=== PATIENT | male | born 1960 | race Caucasian/White ===

== ENCOUNTER 2016-11-03 11:39 | Emergency (ER) | payer OTHER ==
[2016-11-03] MEDS ORDERED: Lidocaine 1% with EPINEPHrine 1:100,000 20 ML MDV INJECT ONE (12:09)
--- NOTE | 2016-11-03 12:09 | EDM.PDOC ---
[id number] [employer] [facility] Time Seen by Provider: 11/03/16 12:05 Source of Information: Reports: Patient History Limitations: Reports: No Limitations - History of Present Illness INITIAL COMMENTS - FREE TEXT/NARRATIVE: pt states that he was cutting something and cut his right hand with a knife. Bleeding controlled. 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 [No Known Home Meds] 11/07/13 [History] Past Medical History - Past Health History Medical/Surgical History: Denies Medical/Surgical History HEENT History: Reports: Allergic Rhinitis Cardiovascular History: Reports: None Respiratory History: Reports: Asthma Gastrointestinal History: Reports: None Genitourinary History: Reports: None Musculoskeletal History: Reports: None Neurological History: Reports: None Psychiatric History: Reports: None Endocrine/Metabolic History: Reports: None Hematologic History: Reports: None Immunologic History: Reports: None Oncologic (Cancer) History: Reports: None Dermatologic History: Reports: None - Infectious Disease History Infectious Disease History: Reports: Shingles - Past Surgical History GI Surgical History: Reports: None Male Surgical History: Reports: None Musculoskeletal Surgical History: Reports: None Social & Family History - Tobacco Use Smoking Status *Q: Never Smoker Second Hand Smoke Exposure: Yes - Caffeine Use Caffeine Use: Reports: Coffee - Alcohol Use Days Per Week of Alcohol Use: 3 Number of Drinks Per Day: 3 Total Drinks Per Week: 9 - Recreational Drug Use Recreational Drug Use: No Drug Use in Last 12 Months: Yes Recreational Drug Type: Reports: Marijuana/Hashish Recreational Drug Use Frequency: Monthly ED ROS GENERAL - Review of Systems Review Of Systems: ROS reveals no pertinent complaints other than HPI. ED EXAM, SKIN/RASH Exam: See Below Exam Limited By: No Limitations General Appearance: Alert, WD/WN, No Apparent Distress Respiratory/Chest: No Respiratory Distress Extremities: Normal Inspection, Normal Range of Motion, Non-Tender, No Pedal Edema, Normal Capillary Refill Skin: Warm, Dry, Wound/Incision Location, Skin: Upper Extremity, Right Characteristics: Linear ED SKIN PROCEDURES - Laceration/Wound Repair Right Hand Lac/Wound length In cm: 2 Appearance: Superficial Distal NVT: Neuro & Vascular Intact Anesthetic Type: Local Local Anesthesia - Lidocaine (Xylocaine): 1% With EPI Local Anesthetic Volume: 3cc Skin Prep: Chlorhexidine (Hibiciens), Providone-Iodine (Betadine), Saline Saline Irrigation (cc's): 30 Exploration/Debridement/Repair: No Foreign Material Found Closed with: Sutures Suture Size: 3-0 # of Sutures: 4 Suture Type: Other (vicryl) Drain Placement: No Sterile Dressing Applied: Nurse Tetanus Status Addressed: Yes Course - Vital Signs Last Recorded V/S: Last Vital Signs Temp 96.8 F 11/03/16 13:07 Pulse 60 11/03/16 13:07 Resp 18 11/03/16 13:07 BP 144/91 H 11/03/16 13:07 Pulse Ox 98 11/03/16 13:07 - Orders/Labs/Meds Meds: Medications Discontinued Medications Generic Name Dose Route Start Last Admin Trade Name Freq PRN Reason Stop Dose Admin Diphtheria/Tetanus/Acell Pertussis 0.5 ml 11/03/16 13:08 11/03/16 13:12 Adacel IM 11/03/16 13:09 0.5 ml .ONCE ONE Administration Lidocaine/Epinephrine 20 ml 11/03/16 12:09 11/03/16 13:10 Xylocaine 1% With Epinephrine 1:100,000 INJECT 11/03/16 12:10 20 ml ONETIME ONE Administration Departure - Departure Time of Disposition: 13:09 Disposition: Home, Self-Care 01 Condition: Good Clinical Impression: Hand laceration Qualifiers: Encounter type: initial encounter Foreign body presence: without foreign body Laterality: right Qualified Code(s): S61.411A - Laceration without foreign body of right hand, initial encounter - Discharge Information Instructions: Puncture Wound, [id number], Laceration Care, Adult, Easy-to- Read Forms: ED Department Discharge Additional Instructions: Keep hand clean and dry. Sutures are absorbable however if no changes in appearance in 7-10 days return for removal. Return for any worsening symtpoms.
[2016-11-03] MEDS ORDERED: Diphtheria,Pertussis(Acell),Tetanus Vaccine 0.5 ML SDV IM ONE (13:08)
[2016-11-03 13:57] VITALS: BP 144/91
== END 2016-11-03 13:19 | disposition home or self-care (01) ==
LOC: DL.ED 11:39
DX: S61.411A Laceration without foreign body of right hand, initial encounter (principal); Z88.0 Allergy status to penicillin; Z91.013 Allergy to seafood; W26.0XXA Contact with knife, initial encounter
CPT/HCPCS: 12001; 90471; 90715; 99282